=== PATIENT | male | born 1955 | race African-American/Black ===

== ENCOUNTER 2016-09-09 14:11 | Inpatient (IN) | payer OTHER ==
[~2016-09-09] VITALS: Ht 186.7 cm; Wt 87.8 kg
[2016-09-09] MEDS ORDERED: NITR.4 SL (14:18)
[2016-09-09] MEDS ORDERED: ATOR20TA86 PO (14:18)
[2016-09-09] MEDS ORDERED: ASPI81TA42 PO (14:18)
[2016-09-09] MEDS ORDERED: ISOS20TA7 PO (14:36)
[2016-09-09] MEDS ORDERED: HYDR-305 PO (14:36)
[2016-09-09] MEDS ORDERED: MELO-273 PO (14:36)
[2016-09-09] MEDS ORDERED: TRAZ-147 PO (14:36)
[2016-09-09] MEDS ORDERED: LEVO75 PO (14:36)
[2016-09-09] MEDS ORDERED: ALPR1TAB7 PO (14:36)
[2016-09-09] MEDS ORDERED: METO25 PO (14:36)
[2016-09-09] MEDS ORDERED: TAMS0.4C32 PO (14:36)
[2016-09-09 14:43] LABS: BASOPHILS % (AUTO) 0.2 % (0.0-2.0); EOSINOPHILS % (AUTO) 1.1 % (1.0-6.0); HEMATOCRIT 45.6 % (41-53); HEMOGLOBIN 14.9 g/dL (13.5-17.5); LYMPHOCYTES # (AUTO) 2.6 K/uL (1.0-4.8); LYMPHOCYTES % (AUTO) 22.4 % (22.0-44.0); MEAN CORPUSCULAR HEMOGLOBIN 32.4 pg (26.0-34.0); MEAN CORPUSCULAR HGB CONC 32.6 G/dL (31.0-37.0); MEAN CORPUSCULAR VOLUME 99 fL (80-100); MONOCYTES # (AUTO) 0.7 K/uL (0.1-1.0); MONOCYTES % (AUTO) 6.1 % (2.0-9.0); NEUTROPHILS # (AUTO) 8.2 K/uL (1.8-7.7); NEUTROPHILS % (AUTO) 70.2 % (40.0-70.0); PLATELET COUNT (AUTO) 144 K/uL (150-450); RED BLOOD CELL COUNT(AUTO) 4.59 MIL/uL (4.50-5.90); RED CELL DISTRIBUTION WIDTH 14.3 % (11.5-14.5); WHITE BLOOD COUNT (AUTO) 11.7 K/uL (4.5-11.0)
[2016-09-09 14:51] LABS: ANION GAP 8 mmol/L (8-16); CALCIUM, TOTAL 9.9 mg/dL (8.8-10.5); CARBON DIOXIDE 30 mmol/L (22-29); CHLORIDE 104 mmol/L (98-107); CREATININE 1.26 mg/dL (0.60-1.30); GLOMERULAR FILTR. RATE CALC > 60 mL/min (>60); POTASSIUM 4.6 mmol/L (3.5-5.1); SODIUM SERUM 142 mmol/L (136-145); UREA NITROGEN, BLOOD 10 mg/dL (7-18)
[2016-09-09 14:57] LABS: ALANINE AMINOTRANSFERASE 19 U/L (12-78); ALBUMIN 4.4 g/dL (3.4-5.0); ASPARTATE AMINOTRANSFERASE 15 U/L (15-37); BILIRUBIN,TOTAL 0.7 mg/dL (0.1-1.0)
[2016-09-09] MEDS ORDERED: ONDANSETRON HCL 4 MG/2 ML VIAL IVP PRN (16:15)
[2016-09-09] MEDS ORDERED: ZOLPIDEM TARTRATE 10 MG TABLET PO PRN (16:15)
[2016-09-09] MEDS ORDERED: HYDROCODONE/ACETAMINOPHEN 5-325 MG TABLET PO PRN (16:15)
[2016-09-09] MEDS ORDERED: ACETAMINOPHEN 325 MG TABLET PO PRN (16:15)
[2016-09-09] MEDS ORDERED: MAGNESIUM HYDROXIDE SUSPENSION 30 ML UDCUP PO PRN (16:15)
[2016-09-09] MEDS ORDERED: MORPHINE SULFATE 2 MG/ML SYRINGE IVP PRN (16:15)
[2016-09-09] MEDS ORDERED: NITROGLYCERIN 0.4 MG SUBLINGUAL TABLET #25 SL PRN (16:15)
[2016-09-09] MEDS ORDERED: IPRATROPIUM BROMIDE 0.5 MG/2.5 ML NEB SOLUTION NEB PRN (16:15)
[2016-09-09] MEDS: ALPRAZolam 1 MG TABLET PO SCH (18:02)
[2016-09-09] MEDS: HYDROCODONE/ACETAMINOPHEN 10-325 MG TABLET PO SCH ×2 (18:02→22:12)
[2016-09-09] MEDS: NITROGLYCERIN 2% (1 GM=INCH) PACKET TP SCH (18:04)
[2016-09-09] MEDS: TraZODone HCL 100 MG TABLET PO SCH (21:14)
[2016-09-09] MEDS: DOCUSATE SODIUM 100 MG CAPSULE PO SCH (21:14)
[2016-09-09 22:07] VITALS: BP 118/72
[2016-09-09] MEDS ORDERED: ALBU8.5H IH (23:00)
[2016-09-10] MEDS: NITROGLYCERIN 2% (1 GM=INCH) PACKET TP SCH ×5 (00:46→17:34)
[2016-09-10] MEDS: ALPRAZolam 1 MG TABLET PO SCH ×3 (00:46→17:34)
[2016-09-10 00:57] VITALS: BP 119/71
[2016-09-10] MEDS: HYDROCODONE/ACETAMINOPHEN 10-325 MG TABLET PO SCH ×4 (04:12→22:15)
[2016-09-10 04:17] VITALS: BP 106/64
[2016-09-10] MEDS: LEVOTHYROXINE SODIUM 75 MCG TABLET PO SCH (05:59)
[2016-09-10 07:14] VITALS: BP 90/55
[2016-09-10 07:48] LABS: CHOL/HDL RATIO 3.3 (4.2-7.3)
[2016-09-10] MEDS: ISOSORBIDE MONONITRATE 20 MG TABLET PO SCH (08:03)
[2016-09-10] MEDS: METOPROLOL TARTRATE 25 MG TABLET PO SCH (08:03)
[2016-09-10] MEDS: ATORVASTATIN CALCIUM 20 MG TABLET PO SCH (08:10)
[2016-09-10] MEDS: DOCUSATE SODIUM 100 MG CAPSULE PO SCH ×2 (08:10→20:42)
[2016-09-10] MEDS: MELOXICAM 7.5 MG TABLET PO SCH (08:10)
[2016-09-10] MEDS: ASPIRIN 81 MG CHEWABLE TABLET PO SCH (08:10)
[2016-09-10] MEDS: PANTOPRAZOLE SODIUM 40 MG/VIAL IVP SCH (08:11)
[2016-09-10] MEDS: TAMSULOSIN HCL 0.4 MG CAPSULE PO SCH (08:12)
[2016-09-10 11:02] VITALS: BP 116/64
[2016-09-10 15:49] VITALS: BP 112/76
[2016-09-10 19:20] VITALS: BP 106/63
[2016-09-10] MEDS: TraZODone HCL 100 MG TABLET PO SCH (20:42)
[2016-09-11] VITALS (16 sets, daily range): BP systolic 91–184; BP diastolic 47–106
[2016-09-11] MEDS: ALPRAZolam 1 MG TABLET PO SCH ×3 (00:28→16:59)
[2016-09-11] MEDS: NITROGLYCERIN 2% (1 GM=INCH) PACKET TP SCH ×5 (00:28→17:11)
[2016-09-11] MEDS: HYDROCODONE/ACETAMINOPHEN 10-325 MG TABLET PO SCH ×3 (04:15→15:23)
[2016-09-11] MEDS: LEVOTHYROXINE SODIUM 75 MCG TABLET PO SCH (06:30)
[2016-09-11] MEDS: PANTOPRAZOLE SODIUM 40 MG/VIAL IVP SCH (08:10)
[2016-09-11] MEDS: METOPROLOL TARTRATE 25 MG TABLET PO SCH (08:17)
[2016-09-11] MEDS: ISOSORBIDE MONONITRATE 20 MG TABLET PO SCH (08:17)
[2016-09-11 08:26] LABS: PROTHROMBIN TIME 10.4 SEC (9.4-11.6)
[2016-09-11] MEDS ORDERED: IOHEXOL 300 MG/ML 150 ML VIAL ONE (08:45)
[2016-09-11] MEDS ORDERED: HEPARIN SODIUM 1000 UNITS/NS 1,000 ML ONE (08:45)
[2016-09-11] MEDS ORDERED: SODIUM BICARBONATE 50 MEQ/50 ML VIAL ONE (08:45)
[2016-09-11] MEDS ORDERED: LIDOCAINE HCL/PF 1% 30 ML VIAL ONE (08:45)
[2016-09-11] MEDS ORDERED: MIDAZOLAM HCL 2 MG/2 ML VIAL ONE (09:18)
[2016-09-11] MEDS ORDERED: VERAPAMIL HCL 2.5 MG/ML 2 ML VIAL ONE (09:19)
[2016-09-11] MEDS ORDERED: FentaNYL CITRATE-PF 100 MCG/2 ML VIAL ONE (09:19)
[2016-09-11] MEDS ORDERED: NITROGLYCERIN 50 MG/D5% WATER 250 ML ONE (09:19)
[2016-09-11] MEDS ORDERED: MIDAZOLAM HCL 2 MG/2 ML VIAL IVP ONE (09:30)
[2016-09-11] MEDS ORDERED: FentaNYL CITRATE-PF 100 MCG/2 ML VIAL IVP ONE (09:30)
[2016-09-11] MEDS ORDERED: HEPARIN SODIUM 1000 UNITS/NS 1,000 ML IARTER ONE (09:38)
[2016-09-11] MEDS ORDERED: SODIUM CHLORIDE 0.9% 500 ML IV ONE (09:38)
[2016-09-11] MEDS ORDERED: IOHEXOL 300 MG/ML 150 ML VIAL IARTER ONE (09:45)
[2016-09-11] MEDS ORDERED: NITROGLYCERIN/D5W 50 MG/250 ML IV BOTTLE IARTER ONE (09:45)
[2016-09-11] MEDS ORDERED: LIDOCAINE 1% 30 ML/SOD BICARB 8.4% 4 ML SQ ONE (09:45)
[2016-09-11] MEDS ORDERED: HEPARIN SODIUM,PORCINE 5,000 UNITS/ML VIAL IVP ONE (09:45)
[2016-09-11] MEDS ORDERED: VERAPAMIL HCL 2.5 MG/ML 2 ML VIAL IARTER ONE (09:45)
[2016-09-11] MEDS ORDERED: NITROGLYCERIN/D5W 50 MG/250 ML IV BOTTLE ICOR ONE (10:15)
[2016-09-11] MEDS: ATORVASTATIN CALCIUM 20 MG TABLET PO SCH (11:19)
[2016-09-11] MEDS: DOCUSATE SODIUM 100 MG CAPSULE PO SCH (11:19)
[2016-09-11] MEDS: MELOXICAM 7.5 MG TABLET PO SCH (11:19)
[2016-09-11] MEDS: TAMSULOSIN HCL 0.4 MG CAPSULE PO SCH (11:19)
[2016-09-11] MEDS: ASPIRIN 81 MG CHEWABLE TABLET PO SCH (11:19)
== END 2016-09-11 18:45 | disposition home or self-care (01) | DRG 287 ==
LOC: EMS 14:19 → 5S 21:04
PROVIDERS: ADMIT Hospitalist; ATTEND Hospitalist
PROC: 4A023N7 Measurement of Cardiac Sampling and Pressure, Left Heart, Percutaneous Approach (ICD-10-PCS; principal; 2016-09-11)
PROC: B211YZZ Fluoroscopy of Multiple Coronary Arteries using Other Contrast (ICD-10-PCS; 2016-09-11)
PROC: B215YZZ Fluoroscopy of Left Heart using Other Contrast (ICD-10-PCS; 2016-09-11)
PROC: B3111ZZ Fluoroscopy of Right Brachiocephalic-Subclavian Artery using Low Osmolar Contrast (ICD-10-PCS; 2016-09-11)
DX: I25.119 Atherosclerotic heart disease of native coronary artery with unspecified angina pectoris (principal); I10 Essential (primary) hypertension; E78.5 Hyperlipidemia, unspecified; E78.00 Pure hypercholesterolemia, unspecified; F17.210 Nicotine dependence, cigarettes, uncomplicated; E03.9 Hypothyroidism, unspecified; N40.0 Benign prostatic hyperplasia without lower urinary tract symptoms; Z98.890 Other specified postprocedural states; Z79.82 Long term (current) use of aspirin; Z79.1 Long term (current) use of non-steroidal anti-inflammatories (NSAID); Z79.899 Other long term (current) drug therapy; Z71.6 Tobacco abuse counseling; I25.2 Old myocardial infarction; Z82.49 Family history of ischemic heart disease and other diseases of the circulatory system
CPT/HCPCS: 93005; 93306; 99285; C9113; J1644; J2250; J3010; J3490; Q9967

== ENCOUNTER → 2018-01-02 | Outpatient (CLI) | payer MEDICARE, OTHER ==
[~2018-01-02] MED LIST: ALBU8.5H8 IH; ALPR1TAB7 PO; ASPI81TA42 PO; ATOR20TA86 PO; HYDR-305 PO; IOVERSOL 320 MG/ML 100 ML VIAL ONE; ISOS20TA7 PO; LEVO75 PO; MELO-107 PO; METO25 PO; NITR.4 SL; SODIUM CHLORIDE 0.9% 100 ML ONE; TAMS0.4C32 PO; TRAZ-220 PO
== END | disposition home or self-care (01) ==
LOC: RADMN 10:23
PROVIDERS: ATTEND Internal Medicine Cardiovascular Disease
DX: J43.9 Emphysema, unspecified (principal); I70.90 Unspecified atherosclerosis; R91.8 Other nonspecific abnormal finding of lung field
CPT/HCPCS: 71260; J7050; Q9967

== ENCOUNTER 2018-09-19 07:15 | Day surgery (SDC) | payer OTHER ==
[~2018-09-19] VITALS: Ht 185.4 cm; Wt 109.0 kg
[~2018-09-19 07:15] MED LIST changes: -HYDR-305 PO; +HYDR-4455 PO; -IOVERSOL 320 MG/ML 100 ML VIAL ONE; +SODIUM CHLORIDE 0.9% 1,000 ML IV ONE; -SODIUM CHLORIDE 0.9% 100 ML ONE
[2018-09-19] MEDS ORDERED: BENZOCAINE 20% 50 MCG/SPRAY 57 GM TP ONE (07:16)
[2018-09-19] MEDS ORDERED: LIDOCAINE 4% 50 ML SOLUTION TP ONE (07:16)
[2018-09-19] MEDS ORDERED: LIDOCAINE 2% 5 ML JELLY TP ONE (07:16)
[2018-09-19] MEDS ORDERED: ALBUTEROL SULFATE 2.5 MG/0.5 ML NEB SOLUTION NEB ONE (07:16)
[2018-09-19] MEDS ORDERED: SODIUM CHLORIDE 0.9% 1,000 ML IV ONE (07:21)
[2018-09-19] MEDS ORDERED: MIDAZOLAM HCL 2 MG/2 ML VIAL ONE (07:41)
[2018-09-19] MEDS ORDERED: FentaNYL CITRATE-PF 100 MCG/2 ML VIAL ONE (07:41)
[2018-09-19] MEDS ORDERED: MethylPREDNISolone SOD SUCC 125 MG/2 ML VIAL IVP ONE (09:15)
[2018-09-19] MEDS ORDERED: MethylPREDNISolone SOD SUCC 125 MG/2 ML VIAL ONE (09:39)
[2018-09-19] MEDS ORDERED: OXYGEN THERAPY IH SCH (20:00)
== END 2018-09-19 10:45 | disposition home or self-care (01) ==
LOC: SURGERY 07:15
PROVIDERS: ATTEND Internal Medicine Critical Care Medicine
DX: J38.4 Edema of larynx (principal); B37.0 Candidal stomatitis; I10 Essential (primary) hypertension; J44.9 Chronic obstructive pulmonary disease, unspecified; Z98.890 Other specified postprocedural states; Z87.891 Personal history of nicotine dependence; E78.00 Pure hypercholesterolemia, unspecified
CPT/HCPCS: 31623; 31624; 71045; 87015; 87070; 87101; 87206; 87220; J2250; J2930; J3010; J7030; 88108; 88312

== ENCOUNTER → 2019-08-28 | Outpatient (CLI) | payer OTHER ==
[~2019-08-28] MED LIST changes: +ASPI81TA40 PO; -ASPI81TA42 PO; -NITR.4 SL; +NITR0.4T52 SL; -SODIUM CHLORIDE 0.9% 1,000 ML IV ONE; +TAMS-13 PO; -TAMS0.4C32 PO; -TRAZ-220 PO; +TRAZ-257 PO
[2019-08-28 12:54] LABS: BASOPHILS % (AUTO) 0.4 % (0.0-2.0); HEMATOCRIT 42.8 % (41-53); HEMOGLOBIN 14.5 g/dL (13.5-17.5); LYMPHOCYTES # (AUTO) 2.4 K/uL (1.0-4.8); LYMPHOCYTES % (AUTO) 35.7 % (22.0-44.0); MEAN CORPUSCULAR HEMOGLOBIN 34.6 pg (26.0-34.0); MEAN CORPUSCULAR HGB CONC 33.8 G/dL (31.0-37.0); MEAN CORPUSCULAR VOLUME 102 fL (80-100); MONOCYTES # (AUTO) 0.5 K/uL (0.1-1.0); MONOCYTES % (AUTO) 7.6 % (2.0-9.0); NEUTROPHILS # (AUTO) 3.6 K/uL (1.8-7.7); NEUTROPHILS % (AUTO) 54.3 % (40.0-70.0); PLATELET COUNT (AUTO) 149 K/uL (150-450); RED BLOOD CELL COUNT(AUTO) 4.18 MIL/uL (4.50-5.90); RED CELL DISTRIBUTION WIDTH 14.1 % (11.5-14.5)
[2019-08-28 13:18] LABS: ALANINE AMINOTRANSFERASE 22 U/L (12-78); ALBUMIN 3.6 g/dL (3.4-5.0); ALKALINE PHOSPHATASE 60 U/L (46-116); ANION GAP 13 mmol/L (8-16); ASPARTATE AMINOTRANSFERASE 25 U/L (15-37); BILIRUBIN,TOTAL 0.6 mg/dL (0.1-1.0); CALCIUM, TOTAL 8.9 mg/dL (8.8-10.5); CARBON DIOXIDE 24 mmol/L (22-29); CHLORIDE 105 mmol/L (98-107); CHOLESTEROL 140 mg/dL (131-200); CREATININE 0.84 mg/dL (0.60-1.30); FREE T4 (FREE THYROXINE) 0.88 ng/dL (0.76-1.46); GLOMERULAR FILTR. RATE CALC > 60 mL/min (>60); GLUCOSE,RANDOM 111 mg/dL (70-110); HDL CHOLESTEROL 46 mg/dL (40-60); LDL CHOL (CALC.) 52 mg/dL (0-130); POTASSIUM 3.3 mmol/L (3.5-5.1); SODIUM SERUM 142 mmol/L (136-145); THYROID STIMULATING HORMONE 1.95 uIU/mL (0.36-3.74); TOTAL PROTEIN, SERUM 6.9 g/dL (6.4-8.2); TRIGLYCERIDES 212 mg/dL (15-150); UREA NITROGEN, BLOOD 9 mg/dL (7-18)
[2019-08-28 14:01] LABS: HEMOGLOBIN A1C 5.5 % (3.8-5.6)
== END | disposition home or self-care (01) ==
LOC: LABPV 11:42
PROVIDERS: ATTEND Internal Medicine Cardiovascular Disease
DX: I11.0 Hypertensive heart disease with heart failure (principal); I50.9 Heart failure, unspecified; E11.8 Type 2 diabetes mellitus with unspecified complications; E55.9 Vitamin D deficiency, unspecified; D56.5 Hemoglobin E-beta thalassemia
CPT/HCPCS: 82306; 83036; 83735; 84439; 84443

== ENCOUNTER 2024-11-30 06:36 | Day surgery (SDC) | payer OTHER ==
[~2024-11-30] VITALS: Ht 185.4 cm; Wt 90.9 kg
[~2024-11-30 06:36] MED LIST changes: +ALPR-709 PO; -ALPR1TAB7 PO; +ATOR20TA PO; -ATOR20TA86 PO; +ISOS-58 PO; -ISOS20TA7 PO; +SODIUM CHLORIDE 0.9% 1,000 ML ONE; -TAMS-13 PO; +TAMS0.4C94 PO
[2024-11-30] MEDS ORDERED: BENZOCAINE 20% 50 MCG/SPRAY 57 GM TP ONE (06:37)
[2024-11-30] MEDS ORDERED: LIDOCAINE 2% 11 ML JELLY TP ONE (06:37)
[2024-11-30] MEDS ORDERED: LIDOCAINE 4% 50 ML SOLUTION TP ONE (06:37)
[2024-11-30] MEDS ORDERED: NALOXONE HCL 0.4 MG/ML VIAL ONE (06:50)
[2024-11-30] MEDS ORDERED: FLUMAZENIL 0.1 MG/ML 5 ML VIAL IVP ONE (06:50)
[2024-11-30] MEDS ORDERED: DiphenhydrAMINE HCL 50 MG/ML VIAL ONE (06:50)
[2024-11-30] MEDS ORDERED: SODIUM TETRADECYL SULFATE 3% 60 MG/2 ML VIAL IVP ONE (06:50)
[2024-11-30] MEDS ORDERED: ATROPINE SULFATE 0.1 MG/ML 10 ML SYRINGE IVP ONE (06:51)
[2024-11-30] MEDS ORDERED: EPINEPHrine 1:10,000 [1 MG/10 ML] SYRINGE ONE (06:51)
[2024-11-30] MEDS: SODIUM CHLORIDE 0.9% 1,000 ML IV ONE (07:27)
[2024-11-30] MEDS ORDERED: FentaNYL CITRATE PF 100 MCG/2 ML VIAL ONE (07:27)
[2024-11-30] MEDS ORDERED: MIDAZOLAM HCL 2 MG/2 ML VIAL ONE (07:28)
[2024-11-30 08:55] VITALS: PULSE 48; RESP 16; O2SAT 100
[2024-11-30] MEDS ORDERED: MethylPREDNISolone SOD SUCC 125 MG/2 ML VIAL ONE (09:23)
[2024-11-30] MEDS: MethylPREDNISolone SOD SUCC 125 MG/2 ML VIAL IVP ONE (09:25)
[2024-11-30] MEDS: LORATADINE 10 MG TABLET PO ONE (11:15)
== END 2024-11-30 14:00 | disposition left against medical advice (07) ==
LOC: SURGERY 06:36
PROVIDERS: ATTEND Internal Medicine Critical Care Medicine
DX: R05.3 Chronic cough (principal); R04.2 Hemoptysis; J38.4 Edema of larynx; B37.0 Candidal stomatitis; J44.9 Chronic obstructive pulmonary disease, unspecified; Z98.890 Other specified postprocedural states; Z79.899 Other long term (current) drug therapy
CPT/HCPCS: 31623; 87206; 87101; 87220; 87070; 88108; 87015; 31624; 71045; J3010; J2250; J7030; J2919; J0171; J0461; J1200; J2310; J3490; Z7610